=== PATIENT | female | born 1990 | race Caucasian/White ===

== ENCOUNTER → 2017-04-16 | Outpatient (CLI) | payer OTHER ==
[2016-09-11 01:20] VITALS: BP 134/73
[~2017-04-16] MED LIST: HYDR-971 PO; KETO10TA PO; MORP15TA PO; NAPR500T4 PO; ONDA8TAB12 PO; PNV1TABL4 PO; TAMS0.4C97 PO
--- NOTE | 2017-04-16 08:24 | RAD ---
Abdominal x-rays Indication: Left lower quadrant abdominal pain for one week Technique: Supine and upright AP views of the abdomen and pelvis Comparison: CT from 04/04/2016 Findings: Heart is normal in size. Visualized lungs are clear. The contours of solid abdominal organs are within normal limits. No abnormally dilated bowel loops or air-fluid levels. Punctate calcifications are seen projecting over the kidneys compatible with renal stones. Visualized bones are within normal limits. Impression: 1. No bowel obstruction. 2. Bilateral nephrolithiasis.
== END | disposition home or self-care (01) ==
LOC: DXRADRC 08:05
PROVIDERS: ATTEND Physician Assistant
DX: N20.0 Calculus of kidney (principal)
CPT/HCPCS: 74020

== ENCOUNTER → 2017-04-16 | Outpatient (CLI) | payer OTHER ==
[2016-09-11 01:20] VITALS: BP 134/73
--- NOTE | 2017-04-17 08:30 | RAD ---
Renal ultrasound, 04/16/2017: History: Microscopic hematuria The right kidney measures 12.1 cm in length while the left kidney measures 11.2 cm. There is no evidence of hydronephrosis. Several small echogenic foci are seen in both kidneys with posterior acoustic shadowing. The findings are compatible with intrarenal calculi. The largest of these lies on the left and measures approximately 8 mm. No renal mass is evident. Limited views of urinary bladder show no abnormality. IMPRESSION: 1. Small bilateral nonobstructing intrarenal calculi. 2. The kidneys are otherwise unremarkable.
--- NOTE | 2017-04-17 08:33 | RAD ---
Pelvic ultrasound, 04/16/2017: History: Intermittent pelvic pain Transabdominal and transvaginal scans were obtained. The uterus is retroverted. A normal central uterine echo measuring 5 mm in AP dimension is noted. A small Nabothian cyst is present in the cervical region. The ovaries are of normal size. They contain small follicular cysts. The largest of these cysts lies on the left and measures 2 cm. It is smooth and simple in appearance. Blood flow is present in both ovaries. No adnexal mass is seen. A small amount of free fluid is present in the pelvis. This amount of fluid can be on a physiologic basis. IMPRESSION: 1. Small left ovarian cyst. 2. Small Nabothian cyst. 3. Small amount of free fluid in the pelvis.
== END | disposition home or self-care (01) ==
LOC: US 14:49
PROVIDERS: ATTEND Physician Assistant
DX: N83.02 Follicular cyst of left ovary (principal); N88.8 Other specified noninflammatory disorders of cervix uteri; R31.9 Hematuria, unspecified
CPT/HCPCS: 76770; 76830; 76856

== ENCOUNTER 2017-11-15 09:10 | Emergency (ER) | payer OTHER ==
[~2017-11-15 09:10] MED LIST changes: +NAPR-514 PO; -NAPR500T4 PO
[2017-11-15 10:15] LABS: BASO % 1 % (0-3); EOS # 0.2 x10^3/uL (0.0-0.7); EOS % 3 % (0-3); HEMOGLOBIN 14.2 g/dL (12.0-15.5); LYMPH # 1.1 x10^3/uL (1.0-4.8); LYMPH % 12 % (24-48); MEAN CORPUSCULAR HEMOGLOBIN 32 pg (25-35); MEAN CORPUSCULAR HGB CONC 35 g/dL (31-37); MEAN CORPUSCULAR VOLUME 93 fL (79-100); MONO # 0.7 x10^3/uL (0.0-1.1); MONO % 7 % (0-9); NEUT # 7.1 x10^3uL (1.8-7.7); NEUT % 78 % (31-73); PLATELET COUNT 188 x10^3/uL (140-400); WHITE BLOOD COUNT 9.1 x10^3/uL (4.0-11.0)
[2017-11-15 10:21] LABS: CREATININE 0.9 mg/dL (0.6-1.0); GFR 75.1; POTASSIUM 3.7 mmol/L (3.5-5.1)
[2017-11-15 10:24] LABS: PREG TEST PT QUAL NEGATIVE (NEG)
[2017-11-15] MEDS ORDERED: NAPR-683 PO (10:46)
--- NOTE | 2017-11-15 10:47 | PHYS DOC ---
Past History Past Medical History: Kidney Stones, UTI Past Surgical History: No Surgical History Smoking: Non-smoker Alcohol Use: None Drug Use: None Adult General Chief Complaint Chief Complaint: VAGINAL BLEEDING HPI HPI 27-year-old female patient states her LMP was on October 25 with one week delayed than her usual menses with intermittent 2 days of vaginal spotting. Patient states she started to have another episode of vaginal bleeding since yesterday with passing blood clots and heavy vaginal bleeding. Patient states she used 6 pads since yesterday. Patient complaining of mild dizziness without chest pain or shortness of breath or palpitation. Patient states she had left lower quadrant and pelvic pain since this morning as a constant pain and rated her pain 6/10. Patient is A2 and denies taking control pills. Patient states she has history of ovarian cyst and concerned for having another ovarian cyst. Review of Systems Review of Systems Constitutional: Denies fever or chills [] Eyes: Denies change in visual acuity, redness, or eye pain [] HENT: Denies nasal congestion or sore throat [] Respiratory: Denies cough or shortness of breath [] Cardiovascular: No additional information not addressed in HPI [] GI: Reports abdominal pain, denies nausea, vomiting, bloody stools or diarrhea [ ] : Denies dysuria or hematuria , reports abnormal vaginal bleeding[] Musculoskeletal: Denies back pain or joint pain [] Integument: Denies rash or skin lesions [] Neurologic: Denies headache, focal weakness or sensory changes [] Endocrine: Denies polyuria or polydipsia [] All other systems were reviewed and found to be within normal limits, except as documented in this note. Current Medications Current Medications Current Medications Medications (Trade) Dose Ordered Sig/Kevin Start Time Stop Time Status Last Admin Dose Admin Ketorolac Tromethamine (Toradol) 30 mg 1X ONCE 11/15/17 11:00 11/15/17 11:01 Allergies Allergies Allergies Coded Allergies Type Severity Reaction Last Updated Verified No Known Drug Allergies 10/06/14 No Physical Exam Physical Exam Constitutional: Well developed, well nourished, no acute distress, non-toxic appearance. [] HENT: Normocephalic, atraumatic, bilateral external ears normal, oropharynx moist, no oral exudates, nose normal. [] Eyes: PERRLA, EOMI, conjunctiva normal, no discharge. [] Neck: Normal range of motion, no tenderness, supple, no stridor. [] Cardiovascular:Heart rate regular rhythm, no murmur [] Lungs & Thorax: Bilateral breath sounds clear to auscultation [] Abdomen: Bowel sounds normal, soft, no tenderness, no masses, no pulsatile masses. [ Patient did not want to have vaginal exam.] Skin: Warm, dry, no erythema, no rash. [] Back: No tenderness, no CVA tenderness. [] Extremities: No tenderness, no cyanosis, no clubbing, ROM intact, no edema. [] Neurologic: Alert and oriented X 3, normal motor function, normal sensory function, no focal deficits noted. [] Psychologic: Affect normal, judgement normal, mood normal. [] Current Patient Data Lab Results Laboratory Tests Test 11/15/17 08:44 11/15/17 09:55 POC Urine HCG, Qualitative hcg negative (Negative) White Blood Count 9.1 x10^3/uL (4.0-11.0) Red Blood Count 4.40 x10^6/uL (3.50-5.40) Hemoglobin 14.2 g/dL (12.0-15.5) Hematocrit 41.0 % (36.0-47.0) Mean Corpuscular Volume 93 fL (79-100) Mean Corpuscular Hemoglobin 32 pg (25-35) Mean Corpuscular Hemoglobin Concent 35 g/dL (31-37) Red Cell Distribution Width 13.0 % (11.5-14.5) Platelet Count 188 x10^3/uL (140-400) Neutrophils (%) (Auto) 78 % (31-73) H Lymphocytes (%) (Auto) 12 % (24-48) L Monocytes (%) (Auto) 7 % (0-9) Eosinophils (%) (Auto) 3 % (0-3) Basophils (%) (Auto) 1 % (0-3) Neutrophils # (Auto) 7.1 x10^3uL (1.8-7.7) Lymphocytes # (Auto) 1.1 x10^3/uL (1.0-4.8) Monocytes # (Auto) 0.7 x10^3/uL (0.0-1.1) Eosinophils # (Auto) 0.2 x10^3/uL (0.0-0.7) Basophils # (Auto) 0.0 x10^3/uL (0.0-0.2) Prothrombin Time 10.1 SEC (9.4-11.4) Prothrombin Time INR 1.0 (0.9-1.1) Sodium Level 141 mmol/L (136-145) Potassium Level 3.7 mmol/L (3.5-5.1) Chloride Level 103 mmol/L (98-107) Carbon Dioxide Level 32 mmol/L (21-32) Anion Gap 6 (6-14) Blood Urea Nitrogen 13 mg/dL (7-20) Creatinine 0.9 mg/dL (0.6-1.0) Estimated GFR (Cockcroft-Gault) 75.1 Glucose Level 79 mg/dL (70-99) Calcium Level 9.0 mg/dL (8.5-10.1) Serum Test, Qualitative Negative (NEG) EKG EKG [] Radiology/Procedures Radiology/Procedures [] Course & Med Decision Making Course & Med Decision Making Pertinent Labs studies reviewed. (See chart for details) Evaluation of patient in ER showed 27-year-old female patient with complaining of abnormal vaginal bleeding. Patient had negative urine and blood test with hemoglobin of 14. Patient had unremarkable physical exam and treated with Toradol and felt better. Patient informed to follow with her primary care physician or [employer] for further evaluation for menometrorrhagia and possible ultrasound of pelvic. Dragon Disclaimer Dragon Disclaimer This electronic medical record was generated, in whole or in part, using a voice recognition dictation system. Departure Departure: Impression: Primary Impression: Menometrorrhagia Additional Impression: Pelvic pain Disposition: HOME, SELF-CARE (At 1045) Condition: IMPROVED Referrals: ENDY BEEBE DO (PCP) Patient Instructions: Menorrhagia Additional Instructions: Drink plenty of liquids Follow-up with your primary care physician in 3-5 days Return to ER if not getting better Scripts Naproxen (NAPROSYN) 500 Mg Tablet 1 TAB PO BID, #20 TAB 1 Refill Prov: KEN BREWSTER MD 11/15/17 Problem Qualifiers KEN BREWSTER MD November 15, 2017 10:47
[2017-11-15] MEDS ORDERED: KETOROLAC 30 MG/ML VIAL. IV ONE (11:00)
[2017-11-15 11:04] VITALS: BP 131/87
== END 2017-11-15 11:04 | disposition home or self-care (01) ==
LOC: ER 09:10
DX: N92.1 Excessive and frequent menstruation with irregular cycle (principal); Z87.440 Personal history of urinary (tract) infections; Z87.442 Personal history of urinary calculi
CPT/HCPCS: 36415; 80048; 81025; 84703; 85025; 85610; 96374; 99284; J1885

== ENCOUNTER 2018-02-09 10:12 | Emergency (ER) | payer OTHER ==
[~2018-02-09] VITALS: Ht 162.6 cm; Wt 51.0 kg
[~2018-02-09 10:12] MED LIST changes: +NAPR-683 PO
[2018-02-09] MEDS ORDERED: IV NORMAL SALINE 1,000ML 1,000 ML IV SCH (10:49)
[2018-02-09 11:12] LABS: BASO # 0.1 x10^3/uL (0.0-0.2); BASO % 1 % (0-3); EOS # 0.1 x10^3/uL (0.0-0.7); EOS % 1 % (0-3); HEMATOCRIT 41.6 % (36.0-47.0); HEMOGLOBIN 14.3 g/dL (12.0-15.5); LYMPH # 2.2 x10^3/uL (1.0-4.8); LYMPH % 34 % (24-48); MEAN CORPUSCULAR HEMOGLOBIN 31 pg (25-35); MEAN CORPUSCULAR HGB CONC 34 g/dL (31-37); MEAN CORPUSCULAR VOLUME 89 fL (79-100); MONO # 0.5 x10^3/uL (0.0-1.1); MONO % 8 % (0-9); NEUT # 3.6 x10^3uL (1.8-7.7); NEUT % 56 % (31-73); PLATELET COUNT 176 x10^3/uL (140-400); RED BLOOD COUNT 4.66 x10^6/uL (3.50-5.40); RED CELL DISTRIBUTION WIDTH 12.8 % (11.5-14.5); WHITE BLOOD COUNT 6.4 x10^3/uL (4.0-11.0)
[2018-02-09] MEDS ORDERED: KETOROLAC 30 MG/ML VIAL. IV ONE (11:15)
[2018-02-09 11:21] LABS: AMPHETAMINE/METHAMPHETAMINE NEG (NEG); BARBITURATES NEG (NEG); BENZODIAZEPINES NEG (NEG); CANNABINOIDS POS (NEG); COCAINE NEG (NEG); METHADONE NEG (NEG); OPIATES NEG (NEG); PHENCYCLIDINE NEG (NEG)
[2018-02-09 11:26] LABS: ALBUMIN 3.7 g/dL (3.4-5.0); ALBUMIN/GLOBULIN RATIO 0.9 (1.0-1.7); CALCIUM 9.2 mg/dL (8.5-10.1); CREATININE 0.9 mg/dL (0.6-1.0); GFR 75.1; POTASSIUM 3.8 mmol/L (3.5-5.1); TOTAL PROTEIN 7.6 g/dL (6.4-8.2)
[2018-02-09 11:31] LABS: BACTERIA,URINE MOD /HPF (0-FEW); BILIRUBIN,URINE NEG (NEG); CLARITY,URINE CLOUDY; COLOR,URINE YELLOW; GLUCOSE,URINE NEG (NEG); NITRITE,URINE NEG (NEG); UROBILINOGEN,URINE 0.2 mg/dL (0.2 mg/dL)
[2018-02-09 11:32] LABS: HYALINE CASTS, URINE OCC /HPF; SQUAMOUS EPITHELIAL CELL,UR MOD /LPF
--- NOTE | 2018-02-09 11:38 | RAD ---
EXAM: Head CT without contrast. HISTORY: Dizziness. TECHNIQUE: Computed tomographic images of the head were obtained without contrast. *One or more of the following individualized dose reduction techniques were utilized for this examination: 1. Automated exposure control. 2. Adjustment of the mA and/or kV according to patient size. 3. Use of iterative reconstruction technique. COMPARISON: None. FINDINGS: There is no acute or subacute extra-axial or intraparenchymal hemorrhage. There is no mass effect or midline shift. There is no hydrocephalus. The durán-white matter differentiation pattern is intact. There is near complete opacification of the right maxillary sinus due to a suspected mucous retention cyst, partially excluded from the [id number]. The mastoid air cells are clear. No suspicious calvarial lesion is seen. IMPRESSION: No acute intracranial findings. Electronically signed by: Kristin Iverson MD (02/09/2018 11:34 AM) [facility]
[2018-02-09 12:00] VITALS: BP 139/86
[2018-02-09] MEDS ORDERED: NAPR-683 PO (12:06)
[2018-02-09] MEDS ORDERED: LISI-338 PO (12:06)
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
[2018-02-09] MEDS ORDERED: CIPR250T30 PO (12:34)
== END 2018-02-09 12:39 | disposition home or self-care (01) ==
LOC: ER 10:12
DX: R03.0 Elevated blood-pressure reading, without diagnosis of hypertension (principal); R51 Headache; N39.0 Urinary tract infection, site not specified; F12.10 Cannabis abuse, uncomplicated; Z87.442 Personal history of urinary calculi; S00.83XA Contusion of other part of head, initial encounter; S10.93XA Contusion of unspecified part of neck, initial encounter; S30.0XXA Contusion of lower back and pelvis, initial encounter; S80.12XA Contusion of left lower leg, initial encounter; S80.11XA Contusion of right lower leg, initial encounter; S60.222A Contusion of left hand, initial encounter; S60.221A Contusion of right hand, initial encounter; X58.XXXA Exposure to other specified factors, initial encounter; Y93.89 Activity, other specified; Y92.89 Other specified places as the place of occurrence of the external cause; Y99.8 Other external cause status
CPT/HCPCS: 36415; 70450; 80053; 80307; 81001; 81025; 85025; 85610; 85730; 87086; 96374; 99285; J1885; G0479; J7030

== ENCOUNTER 2018-06-14 12:20 | Emergency (ER) | payer OTHER ==
[~2018-06-14] VITALS: Ht 162.6 cm; Wt 56.7 kg
[~2018-06-14 12:20] MED LIST changes: +CIPR250T30 PO; +HYDR-3165 PO; -HYDR-971 PO; +LISI-338 PO
[2018-06-14] MEDS ORDERED: IPRATRPIUM/ALBUTEROL 0.5/2.5MG 3 ML NEBU. NEB ONE (12:45)
[2018-06-14] MEDS ORDERED: BENZONATATE 100 MG CAPSULE. PO ONE (13:15)
[2018-06-14] MEDS ORDERED: IBUPROFEN 600 MG TABLET. PO ONE (13:45)
--- NOTE | 2018-06-14 14:18 | PHYS DOC ---
Past History Past Medical History: Hypertension, Kidney Stones, Ovarian Cyst Past Surgical History: Other Smoking: Non-smoker Alcohol Use: Occasionally Drug Use: None Adult General Chief Complaint Chief Complaint: RIB PAIN HPI HPI Patient is a 27 year old smoker female who presents with complaining of right rib pain after coughing. Patient states she has had cough and congestion for 3 weeks and treated as viral infection without improvement of her condition. Patient states she was lifting weight at work today and had an episode of severe cough and felt a pop in right side of her chest with constant right lower rib pain that getting worse with movement and taking deep breaths. Patient denies fever and chills, nausea and vomiting, urinary symptom on . Review of Systems Review of Systems Constitutional: Denies fever or chills [] Eyes: Denies change in visual acuity, redness, or eye pain [] HENT: Reports nasal congestion Respiratory: Reports cough and shortness of breath Cardiovascular: No additional information not addressed in HPI [] GI: Denies abdominal pain, nausea, vomiting, bloody stools or diarrhea [] : Denies dysuria or hematuria [] Musculoskeletal: Denies back pain or joint pain [] Integument: Denies rash or skin lesions [] Neurologic: Denies headache, focal weakness or sensory changes [] Endocrine: Denies polyuria or polydipsia [] All other systems were reviewed and found to be within normal limits, except as documented in this note. Current Medications Current Medications Current Medications Medications (Trade) Dose Ordered Sig/Kevin Start Time Stop Time Status Last Admin Dose Admin Albuterol/ Ipratropium (Duoneb) 3 ml 1X ONCE 06/14/18 12:45 06/14/18 13:02 DC 06/14/18 12:50 3 ML Benzonatate (Tessalon Perle) 200 mg 1X ONCE 06/14/18 13:15 06/14/18 13:16 DC 06/14/18 13:09 200 MG Ibuprofen (Motrin) 600 mg 1X ONCE 06/14/18 13:45 06/14/18 13:46 DC 06/14/18 13:39 600 MG Allergies Allergies Allergies Coded Allergies Type Severity Reaction Last Updated Verified No Known Drug Allergies 10/06/14 No Physical Exam Physical Exam Constitutional: Well developed, well nourished, mild distress with frequent dry cough, non-toxic appearance. [] HENT: Normocephalic, atraumatic, bilateral external ears normal, oropharynx moist, no oral exudates, nose normal. [] Eyes: PERRLA, EOMI, conjunctiva normal, no discharge. [] Neck: Normal range of motion, no tenderness, supple, no stridor. [] Cardiovascular:Heart rate regular rhythm, no murmur [] Lungs & Thorax: Right lower lateral chest tenderness without crepitation or emphysema, bilateral breath sounds clear to auscultation [] Abdomen: Bowel sounds normal, soft, no tenderness, no masses, no pulsatile masses. [] Skin: Warm, dry, no erythema, no rash. [] Back: No tenderness, no CVA tenderness. [] Extremities: No tenderness, no cyanosis, no clubbing, ROM intact, no edema. [] Neurologic: Alert and oriented X 3, normal motor function, normal sensory function, no focal deficits noted. [] Psychologic: Affect normal, judgement normal, mood normal. [] Current Patient Data Vital Signs Vital Signs Date Time Temp Pulse Resp B/P (MAP) Pulse Ox O2 Delivery O2 Flow Rate FiO2 06/14/18 12:51 98 Room Air 06/14/18 12:20 98.4 113 20 EKG EKG [] Radiology/Procedures Radiology/Procedures [][place] [address] IMAGING REPORT Signed PATIENT: ISRAEL VILLAGOMEZ ACCOUNT: [id number] : 1990 LOCATION: ER AGE: 27 SEX: F EXAM STATUS: REG ER ORD. PHYSICIAN: KEN BREWSTER MD REASON: pain PROCEDURE: RIBS RIGHT AND PA CHEST Right RIBS with chest, 06/14/2018: HISTORY: Right rib pain, injury No rib fracture is identified. There is mild linear atelectasis or scarring laterally in the right lower lung. Nipple shadows overlie the lower chest bilaterally. There is no evidence of pneumothorax or hemothorax. The heart size is normal. There is a minimal thoracic scoliosis. IMPRESSION: 1. No right rib abnormality is detected. 2. Mild linear atelectasis or scarring in the right lung. Electronically signed by: Renato Hwang MD (06/14/2018 2:47 PM) [facility] DICTATED AND SIGNED BY: RENATO HWANG MD DATE: 06/14/18 8503 CC: KEN BREWSTER MD; SALLY ALMODOVAR MD ~ Course & Med Decision Making Course & Med Decision Making Pertinent Imaging studies reviewed. (See chart for details) Evaluation of patient in ER showed 27-year-old female patient with any cough for 3 weeks and right-sided chest pain during episodes of cough. Patient has a constant cough in ER and treated with albuterol and Tessalon and felt better. Chest x-ray did not show sign of pneumonia or fracture. Plan discharge patient home with diagnose of bronchitis and musculoskeletal chest pain. Dragon Disclaimer Dragon Disclaimer This electronic medical record was generated, in whole or in part, using a voice recognition dictation system. Departure Departure: Impression: Primary Impression: Acute thoracic myofascial strain Additional Impressions: Bronchitis Tobacco abuse Tobacco abuse counseling Disposition: HOME, SELF-CARE (At 1417) Condition: IMPROVED Referrals: SALLY ALMODOVAR MD (PCP) Patient Instructions: Acute Bronchitis, Smoking Cessation, Tips For Success, Thoracic Strain Additional Instructions: Apply ice on affected area Drink plenty of liquids Follow-up with your primary care physician in 3-5 days Return to ER if not getting better Scripts Azithromycin (ZITHROMAX) 250 Mg Tablet 1 PKG PO UD for infection, #1 PKG Prov: KEN BREWSTER MD 06/14/18 Hydrocodone/Chlorphen P-Stirex (Tussionex Pennkinetic Susp) 115 Ml Jane.er.12h 5 ML PO BID for cough and congestion, #60 ML Prov: KEN BREWSTER MD 06/14/18 Albuterol Sulfate (PROAIR HFA INHALER) 8.5 Gm Hfa.aer.ad 2 PUFF INH PRN Q6HRS PRN for SHORTNESS OF BREATH, #1 INHALER 0 Refills Prov: KEN BREWSTER MD 06/14/18 Problem Qualifiers KEN BREWSTER MD Jun 14, 2018 14:18
[2018-06-14] MEDS ORDERED: ALBU8.5H8 INH (14:22)
[2018-06-14] MEDS ORDERED: AZIT250T PO (14:22)
[2018-06-14] MEDS ORDERED: HYDR115S2 PO (14:22)
[2018-06-14 14:30] VITALS: BP 133/86
--- NOTE | 2018-06-14 14:51 | RAD ---
Right RIBS with chest, 06/14/2018: HISTORY: Right rib pain, injury No rib fracture is identified. There is mild linear atelectasis or scarring laterally in the right lower lung. Nipple shadows overlie the lower chest bilaterally. There is no evidence of pneumothorax or hemothorax. The heart size is normal. There is a minimal thoracic scoliosis. IMPRESSION: 1. No right rib abnormality is detected. 2. Mild linear atelectasis or scarring in the right lung. Electronically signed by: Renato Hwang MD (06/14/2018 2:47 PM) [facility]
== END 2018-06-14 14:30 | disposition home or self-care (01) ==
LOC: ER 12:20
DX: S29.012A Strain of muscle and tendon of back wall of thorax, initial encounter (principal); J40 Bronchitis, not specified as acute or chronic; R07.81 Pleurodynia; I10 Essential (primary) hypertension; Z72.0 Tobacco use; Z71.6 Tobacco abuse counseling; Z87.442 Personal history of urinary calculi; X58.XXXA Exposure to other specified factors, initial encounter; Y93.89 Activity, other specified; Y92.89 Other specified places as the place of occurrence of the external cause; Y99.8 Other external cause status
CPT/HCPCS: 71101; 94640; 99283; J7620

== ENCOUNTER 2019-06-06 14:52 | Emergency (ER) | payer SELFPAY ==
[~2019-06-06] VITALS: Ht 162.6 cm; Wt 51.0 kg
[~2019-06-06 14:52] MED LIST changes: +ALBU2.5V8 INH; +AZIT250T PO; +HYDR115S2 PO
[2019-06-06] MEDS ORDERED: IV NORMAL SALINE 1,000ML 1,000 ML IV SCH (15:11)
[2019-06-06] MEDS ORDERED: ASPIRIN 81 MG TAB.CHEW PO ONE (15:15)
--- NOTE | 2019-06-06 15:18 | EKG ---
[address] [address] Test Date: 2019-06-06 Test Time: 15:15:22 Pat Name: ISRAEL VILLAGOMEZ Department: Room: Gender: F [employer] Specialist: SAE : 1990 Requested By: ZENAIDA HARDING Order Number: [id number] Reading MD: Measurements Intervals [place] Rate: 80 P: 55 MD: 140 QRS: 70 QRSD: 86 T: 66 QT: 380 QTc: 442 Interpretive Statements SINUS RHYTHM ATRIAL PREMATURE COMPLEX(ES) QRS(T) CONTOUR ABNORMALITY CONSIDER ANTEROSEPTAL MYOCARDIAL DAMAGE POSSIBLY ABNORMAL ECG RI6.01 No previous ECG available for comparison
--- NOTE | 2019-06-06 15:35 | RAD ---
EXAM: Chest, single view. HISTORY: Palpitations. COMPARISON: 06/14/2018 FINDINGS: A frontal view of the chest is obtained. There is no infiltrate, pleural effusion or pneumothorax. The heart is normal in size. There is a healed right seventh rib fracture. IMPRESSION: No acute pulmonary finding. Electronically signed by: Kristin Iverson MD (06/06/2019 3:32 PM) [facility]
[2019-06-06 15:45] LABS: BASO # 0.1 x10^3/uL (0.0-0.2); BASO % 1 % (0-3); EOS # 0.1 x10^3/uL (0.0-0.7); EOS % 1 % (0-3); HEMATOCRIT 45.9 % (36.0-47.0); HEMOGLOBIN 15.6 g/dL (12.0-15.5); LYMPH # 2.1 x10^3/uL (1.0-4.8); LYMPH % 20 % (24-48); MEAN CORPUSCULAR HEMOGLOBIN 32 pg (25-35); MEAN CORPUSCULAR HGB CONC 34 g/dL (31-37); MEAN CORPUSCULAR VOLUME 93 fL (79-100); MONO # 0.6 x10^3/uL (0.0-1.1); MONO % 6 % (0-9); NEUT # 7.5 x10^3uL (1.8-7.7); NEUT % 72 % (31-73); PLATELET COUNT 244 x10^3/uL (140-400); RED BLOOD COUNT 4.96 x10^6/uL (3.50-5.40); RED CELL DISTRIBUTION WIDTH 12.4 % (11.5-14.5); WHITE BLOOD COUNT 10.5 x10^3/uL (4.0-11.0)
[2019-06-06 15:54] LABS: BILIRUBIN,URINE NEG (NEG); CLARITY,URINE CLOUDY; COLOR,URINE YELLOW; GLUCOSE,URINE NEG (NEG); NITRITE,URINE NEG (NEG); UROBILINOGEN,URINE 0.2 mg/dL (0.2 mg/dL); WBC,URINE RARE /HPF (0-4)
[2019-06-06 15:55] LABS: AMORPHOUS SEDIMENT,UR PRESENT /HPF; BACTERIA,URINE 0 /HPF (0-FEW); SQUAMOUS EPITHELIAL CELL,UR FEW /LPF
[2019-06-06 15:57] LABS: RBC,URINE 0 /HPF (0-2)
[2019-06-06 16:02] LABS: ALBUMIN 4.3 g/dL (3.4-5.0); ALBUMIN/GLOBULIN RATIO 1.2 (1.0-1.7); CALCIUM 9.5 mg/dL (8.5-10.1); MAGNESIUM 2.1 mg/dL (1.8-2.4); POTASSIUM 3.2 mmol/L (3.5-5.1)
[2019-06-06 16:40] VITALS: BP 147/81
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
[2019-06-06] MEDS ORDERED: POTASSIUM CHLORIDE 20 MEQ TABLET.ER. PO ONE (17:00)
== END 2019-06-06 17:05 | disposition home or self-care (01) ==
LOC: ER 14:55
DX: I10 Essential (primary) hypertension (principal); Z87.442 Personal history of urinary calculi
CPT/HCPCS: 36415; 71045; 80053; 81001; 81025; 83735; 84484; 85025; 93005; 99285-25; J7030

== ENCOUNTER → 2019-09-08 | Outpatient (CLI) | payer BC ==
--- NOTE | 2019-09-09 02:34 | RAD ---
Two-view abdomen dated 09/08/2019. Comparison made to 04/16/2017. Clinical data indication: Epigastric pain for 4 days. FINDINGS: Flat and upright views the abdomen show nondilated gas-filled loops of bowel throughout. No abnormal calcification. No air-fluid level or pneumoperitoneum on the upright view. Small amount of stool throughout the colon. IMPRESSION: Nonobstructive bowel gas pattern. Electronically signed by: Elver Shearer MD (09/09/2019 2:31 AM) [id number]
== END | disposition home or self-care (01) ==
LOC: PMG 16:18
PROVIDERS: ATTEND Physician Assistant
DX: R10.13 Epigastric pain (principal)
CPT/HCPCS: 74019

== ENCOUNTER 2020-11-22 09:10 | Emergency (ER) | payer BC, OTHER ==
[~2020-11-22] VITALS: Ht 162.6 cm; Wt 51.0 kg
[~2020-11-22 09:10] MED LIST changes: -LISI-338 PO; +LISI-517 PO
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
[2020-11-22] MEDS ORDERED: HYDROcodone/APAP 5/325MG 1 TAB TABLET PO ONE (10:00)
[2020-11-22] MEDS ORDERED: CYCLOBENZAPRINE 10 MG TABLET. PO ONE (10:00)
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
[2020-11-22 10:50] VITALS: BP 101/64
[2020-11-22 11:17] LABS: BACTERIA,URINE FEW /HPF (0-FEW); BILIRUBIN,URINE NEG (NEG); CLARITY,URINE HAZY; COLOR,URINE YELLOW; GLUCOSE,URINE NEG (NEG); NITRITE,URINE NEG (NEG); SQUAMOUS EPITHELIAL CELL,UR MANY /LPF; UROBILINOGEN,URINE 0.2 mg/dL (0.2 mg/dL)
[2020-11-22] MEDS ORDERED: HYDR-2759 PO (11:34)
[2020-11-22] MEDS ORDERED: CYCL-331 PO (11:34)
== END 2020-11-22 11:42 | disposition home or self-care (01) ==
LOC: ER 09:10
DX: S00.83XA Contusion of other part of head, initial encounter (principal); S80.212A Abrasion, left knee, initial encounter; S80.211A Abrasion, right knee, initial encounter; M25.551 Pain in right hip; V43.52XA Car driver injured in collision with other type car in traffic accident, initial encounter; Y93.89 Activity, other specified; Y92.488 Other paved roadways as the place of occurrence of the external cause; Y99.8 Other external cause status
CPT/HCPCS: 70450; 72125; 73000; 73502; 81001; 87086; 99285-25

== ENCOUNTER → 2021-01-02 | Outpatient (CLI) | payer OTHER ==
[~2021-01-02] MED LIST changes: +CYCL-331 PO; +HYDR-2759 PO
--- NOTE | 2021-01-02 14:34 | RAD ---
Exam Date: 01/02/2021 2:03 PM XR RIBS AND CHEST 4+VIEWS Indication: Reason: FALL RIGHT RIB PAIN / Spl. Instructions: / History: . FINDINGS: There is a subacute to chronic healing or healed fracture involving the right posterolatera l seventh rib. No displaced acute rib fracture is seen. The mediastinum, cardiac silhouette and pulm onary vasculature are within normal limits. No focal consolidation, effusion or pneumothorax. IMPRESSION: No displaced acute rib fracture identified. Subacute to chronic healing or healed right posterolatera l seventh rib fracture identified. No evidence of acute cardiopulmonary disease. Electronically signed by: Cornelius Clancy MD (01/02/2021 2:31 PM) [id number]
== END ==
LOC: PMG 13:49
PROVIDERS: ATTEND Nurse Practitioner Family
DX: R07.81 Pleurodynia (principal)
CPT/HCPCS: 71111

== ENCOUNTER 2021-01-05 09:08 | Emergency (ER) | payer OTHER ==
[~2021-01-05] VITALS: Ht 162.6 cm; Wt 51.0 kg
[2021-01-05 09:12] VITALS: BP 108/59
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
== END 2021-01-05 09:42 | disposition home or self-care (01) ==
LOC: ER 09:08
DX: R07.81 Pleurodynia (principal); I10 Essential (primary) hypertension; Z87.442 Personal history of urinary calculi
CPT/HCPCS: 99282

== ENCOUNTER 2021-01-10 19:28 | Emergency (ER) | payer OTHER ==
[~2021-01-10] VITALS: Ht 162.6 cm; Wt 51.0 kg
[2021-01-10] MEDS: ONDANSETRON PF 4 MG/2 ML VIAL. IVP ONE (21:03)
[2021-01-10] MEDS: MORPHINE SULFATE 4 MG/ML DISP.SYRIN. IV ONE (21:03)
--- NOTE | 2021-01-10 21:11 | PHYS DOC ---
Past History Past Medical History: Depression, Hypertension, Kidney Stones, Ovarian Cyst, Other Additional Past Medical Histor: palpatations Past Surgical History: Other Additional Past Surgical Histo: RENAL STENTS, HERNIA Smoking: Non-smoker Alcohol Use: None Drug Use: None Adult General Chief Complaint Chief Complaint: ABDOMINAL PAIN HPI HPI Patient is a 30-year-old female presents with right-sided rib and abdominal pain. States that about 10 days ago she tripped over her cat and broke a rib on her right side. States that she was taking prescription pain medicine for this which did help but nothing else. States over the last couple of days has had pain in the same spot that seems to move down a little bit onto her right side, 7 out of 10, sharp in nature. Denies any other recent traumas, illnesses, fevers, travel, abdominal pain, nausea, vomiting, dysuria, hematuria or blood in the stool. Review of Systems Review of Systems Review of systems otherwise unremarkable except noted in HPI Current Medications Current Medications Current Medications Medications (Trade) Dose Ordered Sig/Kevin Start Time Stop Time Status Last Admin Dose Admin Morphine Sulfate (Morphine 4mg Syringe) 4 mg 1X ONCE 01/10/21 20:45 01/10/21 20:46 DC 01/10/21 21:03 4 MG Ondansetron HCl (Zofran) 4 mg 1X ONCE 01/10/21 21:00 01/10/21 21:01 DC 01/10/21 21:03 4 MG Allergies Allergies Allergies Coded Allergies Type Severity Reaction Last Updated Verified No Known Drug Allergies 11/22/20 No Physical Exam Physical Exam Constitutional: Well developed, well nourished, no acute distress, non-toxic appearance. [] HENT: Normocephalic, atraumatic, bilateral external ears normal, oropharynx m oist, no oral exudates, nose normal. [] Eyes: conjunctiva normal, no discharge. [] Neck: Normal range of motion, no tenderness, supple, no stridor. [] Cardiovascular:Heart rate regular rhythm, no murmur [] Lungs & Thorax: Bilateral breath sounds clear to auscultation, chest wall tenderness on the right lateral side [] Abdomen: soft, no tenderness, no masses, no pulsatile masses. [] Skin: Warm, dry, no erythema, no rash. [] Back: No tenderness, no CVA tenderness. [] Extremities: No tenderness, ROM intact, no edema. [] Neurologic: Alert and oriented X 3, normal motor function, normal sensory function, able to sit, stand and walk without issue no focal deficits noted. [] Psychologic: Affect normal, judgement normal, mood normal. [] Current Patient Data Vital Signs Vital Signs Date Time Temp Pulse Resp B/P (MAP) Pulse Ox O2 Delivery O2 Flow Rate FiO2 01/10/21 21:03 18 99 Room Air 01/10/21 20:12 99.0 92 114/56 (75) Lab Results Laboratory Tests Test 01/10/21 20:54 POC Urine HCG, Qualitative hcg negative (Negative) EKG EKG [] Radiology/Procedures Radiology/Procedures [] CT CHEST_ABDOMEN_ AND PELVIS WITHOUT CONTRAST History: Right upper quadrant pain. Right lower quadrant pain. Technique: CT of the chest, abdomen and pelvis were performed without contrast. Coronal and sagittal reconstructions were performed. Exposure: One or more of the following individualized dose reduction techniques were utilized for this examination: 1. Automated exposure control 2. Adjustment of the mA and/or kV according to patient size 3. Use of iterative reconstruction technique. Comparison: April 03, 2016 CT. Radiograph January 02, 2021 Findings: Chest: No pathologic lymphadenopathy. Residual thymus within the anterior mediastinum. No consolidation or pleural effusion. No pneumothorax. 4 mm right lower lobe medial pulmonary nodule (series 2 image 33). Tiny right lower lobe posterior pleural-based nodule (image 34). Tiny left lower lobe pulmonary nodule (image 52). Cluster of small nodules within the left lower lobe (image 33). 3 mm right lower lobe pulmonary nodule (image 50). Abdomen and pelvis: The liver, spleen, adrenal glands, pancreas and gallbladder are unremarkable. No biliary ductal dilatation. Bilateral nonobstructing intrarenal calculi. No hydronephrosis. Decompressed urinary bladder. No ureteral or urinary bladder calculus. Left adnexal cystic lesion measures 4.2 x 2.5 cm, likely ovarian cyst. Minimal left adnexal free fluid, likely physiologic. Rounded densities within the colon and cecum likely related to recently ingested material. Normal appendix. No evidence of bowel obstruction. Bones: Chronic right seventh rib fracture. Impression: Chest CT: 1. No acute thoracic pathology. 2. Small pulmonary nodules. Recommend one-year follow-up if high risk. Abdomen and pelvis CT: 1. No acute abdominal or pelvic pathology. 2. Left adnexal cystic lesion, likely ovarian cyst. Ultrasound can further evaluate if clinically indicated. 3. Bilateral nonobstructing intrarenal calculi. Electronically signed by: Lewis Pillai DO (01/10/2021 10:08 PM) [facility] Heart Score C/O Chest Pain: No Risk Factors: Risk Factors: DM, Current or recent (<one month) smoker, HTN, HLP, family history of CAD, obesity. Risk Scores: Risk Factors: DM, Current or recent (<one month) smoker, HTN, HLP, family history of CAD, obesity. Course & Med Decision Making Course & Med Decision Making Patient is a 30-year-old female presents with right-sided rib pain for 10 days after breaking it 10 days ago [] Dragon Disclaimer Dragon Disclaimer This electronic medical record was generated, in whole or in part, using a voice recognition dictation system. Departure Departure: Impression: Primary Impression: Fracture of rib with routine healing Disposition: 01 HOME / SELF CARE / HOMELESS Condition: GOOD Referrals: SALLY ALMODOVAR MD (PCP) Patient Instructions: RICE - Routine Care for Injuries, Rib Fracture Additional Instructions: Thank you for coming into the emergency department tonight and allowing us to take care of you. Please read all of the attached information above very carefully to go back over what we discussed. You can begin a Tylenol, ibuprofen, Benadryl, and ice regimen at home as discussed. Please follow-up with your primary care physician in the morning to update on ED visit. You are given a copy of your imaging report for your primary care physician. Please come back to the ED with new or concerning symptoms as discussed. JEZ FERRARO MD Jan 10, 2021 21:11
[2021-01-10 21:23] LABS: BASO % 0 % (0-3); EOS # 0.1 x10^3/uL (0.0-0.7); EOS % 1 % (0-3); HEMATOCRIT 31.9 % (36.0-47.0); HEMOGLOBIN 10.8 g/dL (12.0-15.5); LYMPH # 1.4 x10^3/uL (1.0-4.8); LYMPH % 15 % (24-48); MEAN CORPUSCULAR HEMOGLOBIN 32 pg (25-35); MEAN CORPUSCULAR HGB CONC 34 g/dL (31-37); MEAN CORPUSCULAR VOLUME 93 fL (79-100); MONO # 0.6 x10^3/uL (0.0-1.1); MONO % 6 % (0-9); NEUT # 7.2 x10^3uL (1.8-7.7); NEUT % 77 % (31-73); PLATELET COUNT 233 x10^3/uL (140-400); RED BLOOD COUNT 3.42 x10^6/uL (3.50-5.40); RED CELL DISTRIBUTION WIDTH 12.2 % (11.5-14.5); WHITE BLOOD COUNT 9.4 x10^3/uL (4.0-11.0)
[2021-01-10 21:24] LABS: CALCIUM 8.9 mg/dL (8.5-10.1); CREATININE 0.7 mg/dL (0.6-1.0); GFR 98.3; POTASSIUM 3.9 mmol/L (3.5-5.1)
[2021-01-10 21:27] LABS: BACTERIA,URINE 0 /HPF (0-FEW); BILIRUBIN,URINE NEG (NEG); CLARITY,URINE CLEAR; COLOR,URINE YELLOW; GLUCOSE,URINE NEG (NEG); NITRITE,URINE NEG (NEG); RBC,URINE 0 /HPF (0-2); SQUAMOUS EPITHELIAL CELL,UR FEW /LPF; WBC,URINE 0 /HPF (0-4)
[2021-01-10 21:30] LABS: ALBUMIN 3.2 g/dL (3.4-5.0); ALBUMIN/GLOBULIN RATIO 0.8 (1.0-1.7); TOTAL BILIRUBIN 0.4 mg/dL (0.2-1.0); TOTAL PROTEIN 7.2 g/dL (6.4-8.2)
--- NOTE | 2021-01-10 22:11 | RAD ---
CT CHEST_ABDOMEN_ AND PELVIS WITHOUT CONTRAST History: Right upper quadrant pain. Right lower quadrant pain. Technique: CT of the chest, abdomen and pelvis were performed without contrast. Coronal and sagittal reconstructions were performed. Exposure: One or more of the following individualized dose reduction techniques were utilized for thi s examination: 1. Automated exposure control 2. Adjustment of the mA and/or kV according to patient size 3. Use of iterative reconstruction technique. Comparison: April 03, 2016 CT. Radiograph January 02, 2021 Findings: Chest: No pathologic lymphadenopathy. Residual thymus within the anterior mediastinum. No consolidat ion or pleural effusion. No pneumothorax. 4 mm right lower lobe medial pulmonary nodule (series 2 image 33). Tiny right lower lobe posterior pl eural-based nodule (image 34). Tiny left lower lobe pulmonary nodule (image 52). Cluster of small nod ules within the left lower lobe (image 33). 3 mm right lower lobe pulmonary nodule (image 50). Abdomen and pelvis: The liver, spleen, adrenal glands, pancreas and gallbladder are unremarkable. No biliary ductal dilatation. Bilateral nonobstructing intrarenal calculi. No hydronephrosis. Decompressed urinary bladder. No uret eral or urinary bladder calculus. Left adnexal cystic lesion measures 4.2 x 2.5 cm, likely ovarian cyst. Minimal left adnexal free flui d, likely physiologic. Rounded densities within the colon and cecum likely related to recently ingested material. Normal aisha endix. No evidence of bowel obstruction. Bones: Chronic right seventh rib fracture. Impression: Chest CT: 1. No acute thoracic pathology. 2. Small pulmonary nodules. Recommend one-year follow-up if high risk. Abdomen and pelvis CT: 1. No acute abdominal or pelvic pathology. 2. Left adnexal cystic lesion, likely ovarian cyst. Ultrasound can further evaluate if clinically in dicated. 3. Bilateral nonobstructing intrarenal calculi. Electronically signed by: Lewis Pillai DO (01/10/2021 10:08 PM) [facility] [place] [place]
[2021-01-10] MEDS: HYDROcodone/APAP 5/325MG 1 TAB TABLET PO ONE (22:45)
[2021-01-10 22:46] VITALS: BP 114/64
[2021-01-10] MEDS: IBUPROFEN 600 MG TABLET. PO ONE (22:46)
== END 2021-01-10 22:50 | disposition home or self-care (01) ==
LOC: ER 19:28
DX: S22.31XA Fracture of one rib, right side, initial encounter for closed fracture (principal); I10 Essential (primary) hypertension; Z87.442 Personal history of urinary calculi; W01.0XXA Fall on same level from slipping, tripping and stumbling without subsequent striking against object, initial encounter; Y93.89 Activity, other specified; Y92.89 Other specified places as the place of occurrence of the external cause; Y99.8 Other external cause status
CPT/HCPCS: 36415; 71250; 74176; 80053; 81001; 81025; 85025; 96374; 96375; 99285; J2270; J2405

== ENCOUNTER → 2021-05-10 | Outpatient (CLI) | payer OTHER ==
[~2021-05-10] MED LIST changes: -CYCL-331 PO; +CYCL10TA19 PO; -LISI-517 PO; +LISI5TAB15 PO
--- NOTE | 2021-05-10 14:43 | RAD ---
EXAM: Nuclear gastric emptying scan. HISTORY: Nausea and vomiting. Weight loss. Pain. COMPARISON: None. TECHNIQUE: Serial static images were obtained over the stomach following oral administration of 2 mCi 99m-Tc sulfur colloid. FINDINGS: The stomach empties into the small bowel without evidence of reflux in the area of the esop hagus. Gastric retention percents: 1 hour 71% (normal range 34.8-91%) 2 hour 38% (normal range 2.7-60%) 3 hour 23% (normal range 0.5-28%) 4 hour 8% (normal range 0-10%) The estimated time for half emptying of gastric contents, i.e. 'gastric emptying time' is 102 minutes (normal is 66 +/- 22 minutes). IMPRESSION: Delayed gastric emptying half-time. The gastric retention at 1 hour and 2 hours is within normal limits and is at the upper limits of normal at 3 hours and 4 hours. Electronically signed by: Kristin Iverson MD (05/10/2021 2:41 PM) [id number]
== END ==
LOC: NM 08:59
PROVIDERS: ATTEND Internal Medicine Gastroenterology
DX: K30 Functional dyspepsia (principal); R11.0 Nausea; R63.4 Abnormal weight loss
CPT/HCPCS: 78264; A9541

== ENCOUNTER → 2021-05-24 | Outpatient (CLI) | payer OTHER ==
--- NOTE | 2021-05-24 11:37 | RAD ---
INDICATION : Reason: RUQ PAIN, N/V, WEIGHT LOSS / Spl. Instructions: / History: COMPARISON: January 10, 2021 CT TECHNIQUE: Multiple ultrasound images obtained through the abdomen in grayscale and color. FINDINGS: Pancreas: No gross abnormality identified in visualized portions of pancreas. Liver: Echotexture within normal limits in visualized portions of liver. Gallbladder: Distended. 10.2 cm. IVC: Partially distended at level of liver. Common Bile Duct: Not dilated. Right Kidney: No hydronephrosis. IMPRESSION: * Gallbladder is distended without wall thickening or common bile duct dilation. Would correlate wi th symptoms to ensure there is not a pathologic cause such as hydrops. Electronically signed by: James Hernandez MD (05/24/2021 11:35 AM) [id number]
== END ==
LOC: US 09:02
PROVIDERS: ATTEND Internal Medicine Gastroenterology
DX: K82.8 Other specified diseases of gallbladder (principal); R10.10 Upper abdominal pain, unspecified; R10.13 Epigastric pain; R11.0 Nausea; R63.4 Abnormal weight loss
CPT/HCPCS: 76705

== ENCOUNTER 2021-10-22 16:13 | Emergency (ER) | payer OTHER ==
[~2021-10-22] VITALS: Ht 162.6 cm; Wt 44.0 kg
[~2021-10-22 16:13] MED LIST changes: +MORP-62 PO; -MORP15TA PO
[2021-10-22] MEDS ORDERED: ONDANSETRON PF 4 MG/2 ML VIAL. IVP ONE (17:00)
[2021-10-22] MEDS ORDERED: MORPHINE SULFATE 4 MG/ML DISP.SYRIN. IV ONE (17:00)
--- NOTE | 2021-10-22 17:16 | PHYS DOC ---
Past History Past Medical History: Depression, Hypertension, Kidney Stones, Ovarian Cyst, Other Additional Past Medical Histor: palpatations (NITISH COHNE APRN) Past Surgical History: Other Additional Past Surgical Histo: RENAL STENTS, HERNIA (NITISH COHEN APRN) Smoking: Non-smoker Alcohol Use: None Drug Use: None (NITISH COHEN APRN) General Adult EDM: Chief Complaint: ABDOMINAL PAIN HPI: HPI: Patient is a 31-year-old female who presents with right lower quadrant ,abdominal pain since yesterday. Patient states that the pain has increased. Reports taking Tylenol with no relief. Denies vomiting, diarrhea, fever. Patient has history of gastroparesis. (NITISH COHEN APRN) Review of Systems: Review of Systems: ROS At least 10 ROS systems have been reviewed and are negative except as documented in the HPI. General: Negative except as outlined in HPI above. Skin: Negative except as outlined in HPI above. HEENT: Negative except as outlined in HPI above. Neck: Negative except as outlined in HPI above. Respiratory: Negative except as outlined in HPI above.. Cardiovascular: Negative except as outlined in HPI above. Abdomen: Negative except as outlined in HPI above. : Negative except as outlined in HPI above. Back/MSK: Negative except as outlined in HPI above. Neuro: Negative except as outlined in HPI above. Psych: Negative except as outlined in HPI above. (NITISH COHEN APRN) Current Medications: Current Meds: Current Medications Medications (Trade) Dose Ordered Sig/Kevin Start Time Stop Time Status Last Admin Dose Admin Morphine Sulfate (Morphine 4mg Syringe) 4 mg 1X ONCE 10/22/21 17:00 10/22/21 17:01 UNV Ondansetron HCl (Zofran) 4 mg 1X ONCE 10/22/21 17:00 10/22/21 17:01 UNV (NITISH COHEN APRN) Allergies: Allergies: Allergies Coded Allergies Type Severity Reaction Last Updated Verified No Known Drug Allergies 11/22/20 No (NITISH COHEN APRN) Physical Exam: PE: Constitutional: Well developed, well nourished, no acute distress, non-toxic appearance. [] HENT: Normocephalic, atraumatic, bilateral external ears normal, oropharynx moist, no oral exudates, nose normal. [] Eyes: PERRLA, conjunctiva normal, no discharge. [] Neck: Normal range of motion, no tenderness, supple, no stridor. [] Cardiovascular:Heart rate regular rhythm, no murmur [] Lungs & Thorax: Bilateral breath sounds clear to auscultation [] Abdomen: Bowel sounds normal, rebound tenderness on the right lower quadrant Skin: Warm, dry, no erythema, no rash. [] Back: No tenderness, no CVA tenderness. [] Extremities: No tenderness, no cyanosis, no clubbing, ROM intact, no edema. [] Neurologic: Alert and oriented X 3, normal motor function, normal sensory function, no focal deficits noted. [] Psychologic: Affect normal, judgement normal, mood normal. [] (NITISH COHEN APRN) Current Patient Data: Vital Signs: Vital Signs Date Time Temp Pulse Resp B/P (MAP) Pulse Ox O2 Delivery O2 Flow Rate FiO2 10/22/21 16:30 98.3 68 16 108/71 (83) 97 Room Air (NITISH COHEN APRN) EKG: EKG: Sinus rhythm. Heart rate [address] elevation or depression. [] (NITISH COHEN APRN) Radiology/Procedures: Radiology/Procedures: []EXAM: ULTRASOUND ABDOMEN LIMITED CLINICAL HISTORY: Reason: RLQ PAIN / Spl. Instructions: / History: COMPARISON: None available. TECHNIQUE: Limited ultrasound examination of the right lower quadrant of the abdomen was performed. FINDINGS: The appendix is not identified in the right lower quadrant of the abdomen. Peristalsing bowel loops are identified. No free fluid is seen. IMPRESSION: The appendix is not identified in the right lower quadrant. If there is high clinical suspicion recommend CT abdomen and pelvis. Electronically signed by: Bryan Costello MD (10/22/2021 5:38 PM) [facility] (NITISH COHEN APRN) Radiology/Procedures: [place] [address] IMAGING REPORT Signed PATIENT: ISRAEL VILLAGOMEZ ACCOUNT: [id number] : 1990 LOCATION: ER AGE: 31 SEX: F EXAM STATUS: REG ER ORD. PHYSICIAN: NITISH COHEN APRN REASON: RLQ PAIN PROCEDURE: RIGHT LOWER QUANDRANT EXAM: ULTRASOUND ABDOMEN LIMITED CLINICAL HISTORY: Reason: RLQ PAIN / Spl. Instructions: / History: COMPARISON: None available. TECHNIQUE: Limited ultrasound examination of the right lower quadrant of the abdomen was performed. FINDINGS: The appendix is not identified in the right lower quadrant of the abdomen. Peristalsing bowel loops are identified. No free fluid is seen. IMPRESSION: The appendix is not identified in the right lower quadrant. If there is high clinical suspicion recommend CT abdomen and pelvis. Electronically signed by: Bryan Costello MD (10/22/2021 5:38 PM) [facility] DICTATED AND SIGNED BY: BRYAN COSTELLO MD DATE: 10/22/21 1739 CC: EMERGENCY,DEPARTMENT; NITISH COHEN APRN; SALLY VERA MD ~ : 1990 LOCATION: ER AGE: 31 SEX: F EXAM STATUS: REG ER ORD. PHYSICIAN: NITISH COHEN APRN REASON: RLQ pain Hx:Gastroparesis Omni 300 75cc PROCEDURE: CT ABD PELV W/ORAL&IV CONTRAST Exam: CT of abdomen and pelvis with contrast INDICATION: Right lower quadrant pain TECHNIQUE: Sequential axial images through the abdomen and pelvis obtained following the administration of 74 mL of Isovue-370 IV contrast. Sagittal and co baljeet reformatted images were reconstructed from the axial data and reviewed. Exposure: One or more of the following in the visualized dose reduction techniques were utilized for this examination: 1. Automated exposure control 2. Adjustment of the MA and/or KV according to patient size 3. Use of iterative of reconstructive technique Comparisons: 01/10/2021 FINDINGS: Heart size is normal. No pericardial effusion. Visualized lung bases are clear. No pleural effusion. Liver, spleen, pancreas and adrenals are unremarkable. Gallbladder is decompressed. No perinephric inflammation or hydronephrosis. Nonobstructing renal calculi note d bilaterally. No ureteral calculi are seen. Bladder is partially distended and not well evaluated. Uterus is not enlarged. No abnormal adnexal mass. Small amount of free fluid noted in the pelvis. Large and small bowel are unremarkable. Appendix is mildly dilated measuring up to 9 mm in diameter. No adjacent fluid collection. Abdominal aorta has normal course and caliber. Abdominal vasculature is patent. No enlarged intra-abdominal lymph nodes are identified. No suspicious osseous lesions or acute fractures. IMPRESSION: Mildly dilated appendix can be seen in setting of early appendicitis. Correlate with symptomatology. Electronically signed by: Breonna Jesus MD (10/22/2021 7:54 PM) [facility] DICTATED AND SIGNED BY: BREONNA JESUS MD DATE: 10/22/211944 CC: MINH RODRIGUEZ MD; NITISH COHEN APRN; SALLY VERA MD ~ (MINH RODRIGUEZ MD) Heart Score: C/O Chest Pain: No Risk Factors: Risk Factors: DM, Current or recent (<one month) smoker, HTN, HLP, family history of CAD, obesity. Risk Scores: Score 0 - 3: 2.5% MACE over next 6 weeks - Discharge Home Score 4 - 6: 20.3% MACE over next 6 weeks - Admit for Clinical Observation Score 7 - 10: 72.7% MACE over next 6 weeks - Early Invasive Strategies (NITISH COHEN APRN) Course & Med Decision Making: Course & Med Decision Making Pertinent Labs and Imaging studies reviewed. (See chart for details) [] 31-year-old male presents with right lower quadrant, abdominal pain. Patient has rebound tenderness on physical exam. Work-up in ER consisted of CBC, CMP, lipase, ultrasound . Patient pain was treated while in the ER. Appendix was not identified on ultrasound. CT abdomen pelvis with contrast ordered to rule out appendicitis. Report given to Dr. Rodriguez at 1905 (NITISH COHEN APRN) Course & Med Decision Making See Linette note prior shift change. Last [id number] protein bar. Hx. Gx 2, T x [address] Vera. Discussed presentation, testing and tx. plan with Dr. Luu. Will accept pt in transfer for surgery consult. Discussed presentation, testing and tx. plan with Dr. Barros- will do consult. Impression: 1. Abdomen pain 2. CT- Dx Early Appendicitis 3. Hx. of Renal Stone s and Renal stents. x 5 4. Hx. G x2, T x 2 Vaginal (MINH RODRIGUEZ MD) Dragon Disclaimer: Dragon Disclaimer: This electronic medical record was generated, in whole or in part, using a voice recognition dictation system. (NITISH COHEN APRN) Departure Departure: Referrals: SALLY VERA MD (PCP) Dragon Disclaimer This chart was dictated in whole or in part using Voice Recognition software in a busy, high-work load, and often noisy Emergency Department environment. It may contain unintended and wholly unrecognized errors or omissions. (MINH RODRIGUEZ MD) Dragon Disclaimer This chart was dictated in whole or in part using Voice Recognition software in a busy, high-work load, and often noisy Emergency Department environment. It may contain unintended and wholly unrecognized errors or omissions. (MINH RODRIGUEZ MD) Attending Signature Attending Signature I have reviewed the PA/INSULATION EXTRUDER OPERATOR's note and plan of care. I was available for consultation as needed during the patient's visit in the emergency department. I agree with the clinical impression, plan, and disposition. (SEDRICK CASTANEDA DO) Attending Signature I have participated in the care of this patient and I have reviewed and agree with all pertinent clinical information above including history, exam, and recommendations. (MINH RODRIGUEZ MD) Attending Co-Sign Attending Co-Sign The patient was seen and interviewed as well as examined at the bedside. The chart was reviewed. The case was discussed. Agree with the plan of care. (MINH RODRIGUEZ MD) NITISH COHEN APRN Oct 22, 2021 17:16 MINH RODRIGUEZ MD Oct 22, 2021 19:07 SEDRICK CASTANEDA DO Oct 22, 2021 22:56
--- NOTE | 2021-10-22 17:41 | RAD ---
EXAM: ULTRASOUND ABDOMEN LIMITED CLINICAL HISTORY: Reason: RLQ PAIN / Spl. Instructions: / History: COMPARISON: None available. TECHNIQUE: Limited ultrasound examination of the right lower quadrant of the abdomen was performed. FINDINGS: The appendix is not identified in the right lower quadrant of the abdomen. Peristalsing bowel loops a re identified. No free fluid is seen. IMPRESSION: The appendix is not identified in the right lower quadrant. If there is high clinical suspicion recom mend CT abdomen and pelvis. Electronically signed by: Bryan Costello MD (10/22/2021 5:38 PM) [facility]
[2021-10-22 18:01] LABS: BASO # 0.1 x10^3/uL (0.0-0.2); BASO % 1 % (0-3); EOS # 0.1 x10^3/uL (0.0-0.7); EOS % 1 % (0-3); HEMOGLOBIN 12.4 g/dL (12.0-15.5); LYMPH # 2.2 x10^3/uL (1.0-4.8); LYMPH % 34 % (24-48); MEAN CORPUSCULAR HEMOGLOBIN 32 pg (25-35); MEAN CORPUSCULAR HGB CONC 34 g/dL (31-37); MEAN CORPUSCULAR VOLUME 94 fL (79-100); MONO # 0.5 x10^3/uL (0.0-1.1); MONO % 7 % (0-9); NEUT # 3.7 x10^3uL (1.8-7.7); NEUT % 56 % (31-73); PLATELET COUNT 239 x10^3/uL (140-400); RED BLOOD COUNT 3.95 x10^6/uL (3.50-5.40); WHITE BLOOD COUNT 6.5 x10^3/uL (4.0-11.0)
[2021-10-22 18:10] LABS: CALCIUM 9.4 mg/dL (8.5-10.1); CREATININE 0.9 mg/dL (0.6-1.0); POTASSIUM 4.4 mmol/L (3.5-5.1)
[2021-10-22 18:12] LABS: AMORPHOUS SEDIMENT,UR PRESENT /HPF; BACTERIA,URINE FEW /HPF (0-FEW); CLARITY,URINE CLEAR; COLOR,URINE YELLOW; GLUCOSE,URINE NEG (NEG); NITRITE,URINE NEG (NEG); RBC,URINE 0 /HPF (0-2); SQUAMOUS EPITHELIAL CELL,UR FEW /LPF; UROBILINOGEN,URINE 0.2 mg/dL (0.2 mg/dL)
[2021-10-22 18:13] LABS: U PREG PATIENT NEGATIVE (NEG)
[2021-10-22] MEDS ORDERED: KETOROLAC 15 MG/ML VIAL. IVP ONE (18:15)
[2021-10-22 18:16] LABS: ALBUMIN/GLOBULIN RATIO 1.3 (1.0-1.7); MAGNESIUM 2.2 mg/dL (1.8-2.4); TOTAL BILIRUBIN 0.9 mg/dL (0.2-1.0); TOTAL PROTEIN 7.1 g/dL (6.4-8.2)
[2021-10-22] MEDS ORDERED: IOHEXOL 240 MG/ML 50ML VIAL. ONE (18:23)
[2021-10-22] MEDS ORDERED: IOHEXOL 300 MG/ML 75 ML VIAL. IV ONE (18:30)
[2021-10-22] MEDS ORDERED: HYDROcodone/APAP 5/325MG 1 TAB TABLET PO ONE (19:00)
--- NOTE | 2021-10-22 19:57 | RAD ---
Exam: CT of abdomen and pelvis with contrast INDICATION: Right lower quadrant pain TECHNIQUE: Sequential axial images through the abdomen and pelvis obtained following the administrati on of 74 mL of Isovue-370 IV contrast. Sagittal and coronal reformatted images were reconstructed fro m the axial data and reviewed. Exposure: One or more of the following in the visualized dose reduction techniques were utilized for this examination: 1. Automated exposure control 2. Adjustment of the MA and/or KV according to patient size 3. Use of iterative of reconstructive technique Comparisons: 01/10/2021 FINDINGS: Heart size is normal. No pericardial effusion. Visualized lung bases are clear. No pleural effusion. Liver, spleen, pancreas and adrenals are unremarkable. Gallbladder is decompressed. No perinephric inflammation or hydronephrosis. Nonobstructing renal calculi noted bilaterally. No ure teral calculi are seen. Bladder is partially distended and not well evaluated. Uterus is not enlarged. No abnormal adnexal ma ss. Small amount of free fluid noted in the pelvis. Large and small bowel are unremarkable. Appendix is m ildly dilated measuring up to 9 mm in diameter. No adjacent fluid collection. Abdominal aorta has normal course and caliber. Abdominal vasculature is patent. No enlarged intra-abdominal lymph nodes are identified. No suspicious osseous lesions or acute fractures. IMPRESSION: Mildly dilated appendix can be seen in setting of early appendicitis. Correlate with symptomatology. Electronically signed by: Breonna Carreno MD (10/22/2021 7:54 PM) [facility]
[2021-10-22] MEDS ORDERED: IV NORMAL SALINE 50ML 50 ML ONE (20:25)
[2021-10-22] MEDS ORDERED: cefTRIAXone SODIUM 1 GM VIAL ONE (20:25)
[2021-10-22] MEDS ORDERED: IV RINGERS SOLUTION,LACTATED 1,000 ML IV ONE (20:45)
[2021-10-22] MEDS ORDERED: IV NORMAL SALINE 1,000ML 1,000 ML IV ONE (20:45)
[2021-10-22 22:19] VITALS: BP 117/82
[2021-10-22] MEDS ORDERED: MORPHINE SULFATE 10 MG/ML SYRINGE. SQ ONE (22:30)
== END 2021-10-22 22:19 | disposition short-term general hospital (02) ==
LOC: ER 16:13
DX: K37 Unspecified appendicitis (principal); F32.9 Major depressive disorder, single episode, unspecified; I10 Essential (primary) hypertension; Z20.822 Contact with and (suspected) exposure to COVID-19; Z87.442 Personal history of urinary calculi
CPT/HCPCS: 36415; 74177; 80053; 81001; 81025; 83690; 83735; 85025; 87426; 93976; 96365; 96366; 96372; 96375; 99285; J0696; J1885; J2270; J2405; J3490; J7030; J7120; Q9967